=== PATIENT | female | born 1950 | race Caucasian/White ===

== ENCOUNTER 2017-05-12 15:07 | Emergency (ER) | payer OTHER ==
[2017-05-12 15:22] VITALS: BP 118/80; PULSE 90; RESP 18; TEMP 98; O2SAT 90
--- NOTE | 2017-05-12 15:29 | EDPHY ---
H & P Stated Complaint: tripped over rug on wednesday c/o Rt eye brusing, upper arm and knee pain Time Seen by Provider: 05/12/17 15:22 HPI/ROS: CHIEF COMPLAINT: I contusion HISTORY OF PRESENT ILLNESS: Patient is a 66-year-old female who fell 3 days ago. She hit her eyebrow on a corner of the wall. She did not lose consciousness. She denies headache or neck pain. She has abrasion to right knee and some pain in her right upper arm and a bruise to her right eyelid. No visual changes. No headache. No focal weakness or numbness. She states that her swelling is worse in the mornings when she wakes up and then improve throughout the day. She called her doctor's nurse who recommended she come to be evaluated in the ER. She does not take blood thinners. REVIEW OF SYSTEMS: Constitutional: denies: chills, fever, recent illness, recent injury EENTM: denies: blurred vision, double vision, nose congestion Respiratory: denies: cough, shortness of breath Cardiac: denies: chest pain, irregular heart rate, lightheadedness, palpitations Gastrointestinal/Abdominal: denies: abdominal pain, diarrhea, nausea, vomiting, blood streaked stools Genitourinary: denies: dysuria, frequency, hematuria, pain Musculoskeletal: denies: joint pain, muscle pain Skin: See HPI Neurological: denies: headache, numbness, paresthesia, tingling, dizziness, weakness Hematologic/Lymphatic: denies: blood clots, easy bleeding, easy bruising Immunologic/allergic: denies: HIV/AIDS, transplant EXAM: GENERAL: Well-appearing, well-nourished and in no acute distress. HEAD: Atraumatic, normocephalic. EYES: Normal visual acuity, no corneal abrasion, Pupils equal round and reactive to light, extraocular movements intact, sclera anicteric, conjunctiva are normal. ENT: TMs normal, nares patent, oropharynx clear without exudates. Moist mucous membranes. NECK: Normal range of motion, supple without lymphadenopathy or JVD. LUNGS: Breath sounds clear to auscultation bilaterally and equal. No wheezes rales or rhonchi. HEART: Regular rate and rhythm without murmurs, rubs or gallops. ABDOMEN: Soft, nontender, normoactive bowel sounds. No guarding, no rebound. No masses appreciated. BACK: No CVA tenderness, no spinal tenderness, step-offs or deformities EXTREMITIES: Normal range of motion, no pitting or edema. No clubbing or cyanosis. NEUROLOGICAL: Cranial nerves II through XII grossly intact. Normal speech, normal gait. 5/5 strength, normal movement in all extremities, normal sensation PSYCH: Normal mood, normal affect. SKIN: Patient has some minor bruising to her upper eyelid on the right. No significant swelling. Source: Patient Exam Limitations: No limitations - Personal History Current Tetanus Diphtheria and Acellular Pertussis (TDAP): Yes - Medical/Surgical History Hx Asthma: No Hx Chronic Respiratory Disease: No Hx Diabetes: No Hx Cardiac Disease: No Hx Renal Disease: No Hx Cirrhosis: No Hx Alcoholism: No Other PMH: denies - Family History Significant Family History: No pertinent family hx - Social History Smoking Status: Former smoker Alcohol Use: Sober Drug Use: None Constitutional: Initial Vital Signs Temperature (C) 36.6 C 05/12/17 15:18 Heart Rate 90 05/12/17 15:18 Respiratory Rate 18 05/12/17 15:18 Blood Pressure 118/80 05/12/17 15:18 O2 Sat (%) 90 L 05/12/17 15:18 O2 Delivery Mode Room Air Allergies/Adverse Reactions: No Known Allergies Allergy (Unverified 05/12/17 15:18) Home Medications: Medication Instructions Recorded Fosamax 35 MG 05/12/17 Medical Decision Making ED Course/Re-evaluation: We did discuss options. The patient's injury seems very minor. Her extraocular muscles are intact. No deformity of her facial bones. Vision intact. We did offer CT scan to evaluate further although I told her I would be very surprised if there was a fracture or intracranial injury. At this point she decided not to obtain a CT scan. We discussed the natural course of bruises. We discussed indications for returning. Differential Diagnosis: Partial list of the Differential diagnosis considered include but were not limited to; abrasion, contusion, facial fracture and although unlikely based on the history and physical exam, I also considered head injury, neck injury, concussion, laceration, infection. I discussed these differential diagnoses and the plan with the patient as well as the usual and expected course. The patient understands that the diagnosis is provisional and that in medicine we are not always correct and that further workup is often warranted. Usual and customary warnings were given. All of the patient's questions were answered. The patient was instructed to return to the emergency department should the symptoms at all worsen or return, otherwise to followup with the physician as we discussed. Departure - Departure Disposition: Home, Routine, Self-Care Clinical Impression: Contusion Qualifiers: Encounter type: initial encounter Contusion area: head Contusion of head detail : eyelid Laterality: right Qualified Code(s): S00.11XA - Contusion of right eyelid and periocular area, initial encounter Condition: Fair Instructions: Contusion in Adults (ED) Referrals: ANG DORAN [Primary Care Provider] - As per Instructions
== END 2017-05-12 15:41 | disposition home or self-care (01) ==
LOC: CED 15:07
DX: S00.11XA Contusion of right eyelid and periocular area, initial encounter (principal); Z87.891 Personal history of nicotine dependence; W22.8XXA Striking against or struck by other objects, initial encounter

== ENCOUNTER → 2018-06-30 | Outpatient (CLI) | payer OTHER | END | disposition home or self-care (01) | LOC: FIMAGING 10:25 | PROVIDERS: ATTEND Family Medicine | DX: Z12.31 Encounter for screening mammogram for malignant neoplasm of breast (principal) ==